=== PATIENT | male | born 1965 | race African-American/Black ===

== ENCOUNTER 2021-01-11 16:12 | Observation (INO) | payer OTHER ==
[2021-01-11] MEDS ORDERED: LORazepam 2 MG/ML INJ IV STA (16:35)
[2021-01-11] MEDS ORDERED: SODIUM CHLORIDE 0.9% 1,000 ML IV STA ×2 (16:35→18:15)
[2021-01-11 17:15] LABS: Basophils % (A) 0 %; Eosinophils # (A) 0.1 k/uL (0-0.7); Eosinophils % (A) 1 %; HCT 46.1 % (39.0-53.0); HGB 15.4 gm/dL (13.0-17.5); Lymphocytes # (A) 0.7 k/uL (1.0-4.8); Lymphocytes % (A) 8 %; MCH 31.5 pg (25.0-35.0); MCHC 33.5 g/dL (31.0-37.0); Mean Platelet Volume 7.6; Monocytes # (A) 0.3 k/uL (0-1.0); Monocytes % (A) 4 %; Neutrophils # (A) 7.4 k/uL (1.3-7.7); Neutrophils % (A) 87 %; Platelet Count 184 k/uL (150-450); WBC 8.5 k/uL (3.8-10.6)
[2021-01-11 17:25] LABS: ALT 37 U/L (4-49); AST 43 U/L (17-59); African American GFR (CKD) 74 (>60 ml/min/1.73 sqM); Albumin 4.4 g/dL (3.5-5.0); Alcohol <10 mg/dL; Alkaline Phosphatase 91 U/L (38-126); Anion Gap 10 mmol/L; Blood Urea Nitrogen 21 mg/dL (9-20); Calcium 9.5 mg/dL (8.4-10.2); Carbon Dioxide 24 mmol/L (22-30); Chloride 104 mmol/L (98-107); Glucose 105 mg/dL (74-99); Non-African American GFR(CKD) 64 (>60 ml/min/1.73 sqM); Potassium 5.2 mmol/L (3.5-5.1); Sodium 138 mmol/L (137-145); Total Bilirubin 0.4 mg/dL (0.2-1.3); Total Protein 7.5 g/dL (6.3-8.2)
[2021-01-11 17:36] LABS: INR 0.9 (<1.2); Partial Thromboplastin Time 22.1 sec (22.0-30.0)
--- NOTE | 2021-01-11 17:43 | XR ---
EXAMINATION TYPE: XR chest 2V DATE OF EXAM: 01/11/2021 COMPARISON: NONE HISTORY: Chest pain TECHNIQUE: 2 views FINDINGS: There is no heart failure nor confluent pneumonic infiltrate. Costophrenic angles are clear . Bony thorax is intact. There are chest leads. IMPRESSION: No active cardiopulmonary disease.
--- NOTE | 2021-01-11 17:44 | ED ---
General Adult HPI - General Chief complaint: Chest Pain Stated complaint: Seizure Time Seen by Provider: 01/11/21 16:17 Source: EMS Mode of arrival: EMS Limitations: no limitations - History of Present Illness Initial comments: 55-year-old male with a past medical history of atrial fibrillation presents to the emergency room for a chief complaint of chest pain. Patient had some chest pressure starting a few hours before arrival to the ER. Patient states he had been working around the house all day and afterwards he sat down and started to have chest pressure. Denies any radiating pain. Does admit to associated shortness of breath at the beginning but that has since resolved. Patient did call the ambulance. According to EMS the fire team that initially got there thought he may have had a seizure. States they went to get him up and he had a seizure and lost bladder control. No history of seizures. Patient was recently released from retirement for the past 32 years.he shouldn't did get aspirin upon transfer by EMS. Patient has no other complaints at this time including shortness of breath, chest pain, abdominal pain, nausea or vomiting, headache, or visual changes. - Related Data Home Medications Medication Instructions Recorded Confirmed Aspirin EC [Ecotrin Low Dose] 81 mg PO DAILY 01/11/21 01/11/21 Blood Pressure Med Unknown 1 tab PO DAILY 01/11/21 01/11/21 Cholesterol Unknown 1 tab PO DAILY 01/11/21 01/11/21 Naproxen [Naprosyn] 375 mg PO Q12HR 01/11/21 01/11/21 Allergies Allergy/AdvReac Type Severity Reaction Status Date / Time No Known Allergies Allergy Verified 01/11/21 17:34 Review of Systems ROS Statement: Those systems with pertinent positive or pertinent negative responses have been documented in the HPI. ROS Other: All systems not noted in ROS Statement are negative. Past Medical History Additional Past Medical History / Comment(s): AFIB HX. Pneumothroax. History of Any Multi-Drug Resistant Organisms: None Reported Past Surgical History: Orthopedic Surgery Additional Past Surgical History / Comment(s): chest tube placement Past Psychological History: No Psychological Hx Reported Smoking Status: Current every day smoker Past Alcohol Use History: Daily Past Drug Use History: None Reported General Exam Limitations: no limitations General appearance: alert, in no apparent distress Head exam: Present: atraumatic Eye exam: Present: normal appearance, PERRL, EOMI. Absent: scleral icterus ENT exam: Present: normal exam, mucous membranes moist Neck exam: Present: normal inspection, full ROM. Absent: tenderness Respiratory exam: Present: normal lung sounds bilaterally. Absent: respiratory distress, wheezes Cardiovascular Exam: Present: regular rate, normal rhythm, normal heart sounds GI/Abdominal exam: Present: soft, normal bowel sounds. Absent: distended, tenderness Course Vital Signs 01/11/21 01/11/21 17:00 17:01 Temperature 98.0 F Pulse Rate 70 Pulse Rate [ 71 Guest Room Attendant ] Respiratory 20 Rate Blood Pressure 129/84 O2 Sat by Pulse 96 Oximetry EKG Findings - EKG Comments: EKG Findings:: Normal sinus rhythm, ventricular rate 73, IL interval 166, QTC 409, T-wave inversions noted in the lateral leads. Medical Decision Making - Medical Decision Making Vitals are stable. Patient well-appearing. CBC unremarkable. CMP does reveal possible dehydration. EKG did reveal some T-wave inversions in the lateral leads. We do not have any previous EKGs to compare. Chest x-ray shows no active cardiopulmonary disease. Patient was given aspirin prior to arrival. Patient will be admitted for cardiology consultation given EKG changes and chest pressure. We will also consult neurology given fire reported seizure with loss of bladder control. - Lab Data Result diagrams: 01/11/21 17:05 01/11/21 17:05 Lab Results 01/11/21 01/11/21 01/11/21 Range/Units 17:05 17:05 17:05 WBC 8.5 (3.8-10.6) k/uL RBC 4.90 (4.30-5.90) m/uL Hgb 15.4 (13.0-17.5) gm/dL Hct 46.1 (39.0-53.0) % MCV 94.0 (80.0-100.0) fL MCH 31.5 (25.0-35.0) pg MCHC 33.5 (31.0-37.0) g/dL RDW 13.0 (11.5-15.5) % Plt Count 184 (150-450) k/uL MPV 7.6 Neutrophils % 87 % Lymphocytes % 8 % Monocytes % 4 % Eosinophils % 1 % Basophils % 0 % Neutrophils # 7.4 (1.3-7.7) k/uL Lymphocytes # 0.7 L (1.0-4.8) k/uL Monocytes # 0.3 (0-1.0) k/uL Eosinophils # 0.1 (0-0.7) k/uL Basophils # 0.0 (0-0.2) k/uL PT 10.0 (9.0-12.0) sec INR 0.9 (<1.2) APTT 22.1 (22.0-30.0) sec Sodium 138 (137-145) mmol/L Potassium 5.2 H (3.5-5.1) mmol/L Chloride 104 (98-107) mmol/L Carbon Dioxide 24 (22-30) mmol/L Anion Gap 10 mmol/L BUN 21 H (9-20) mg/dL Creatinine 1.27 H (0.66-1.25) mg/dL Est GFR (CKD-EPI)AfAm 74 (>60 ml/min/1.73 sqM) Est GFR (CKD-EPI)NonAf 64 (>60 ml/min/1.73 sqM) Glucose 105 H (74-99) mg/dL Calcium 9.5 (8.4-10.2) mg/dL Magnesium 2.0 (1.6-2.3) mg/dL Total Bilirubin 0.4 (0.2-1.3) mg/dL AST 43 (17-59) U/L ALT 37 (4-49) U/L Alkaline Phosphatase 91 (38-126) U/L Troponin I (0.000-0.034) ng/mL Total Protein 7.5 (6.3-8.2) g/dL Albumin 4.4 (3.5-5.0) g/dL Serum Alcohol <10 mg/dL 01/11/21 Range/Units 17:05 WBC (3.8-10.6) k/uL RBC (4.30-5.90) m/uL Hgb (13.0-17.5) gm/dL Hct (39.0-53.0) % MCV (80.0-100.0) fL MCH (25.0-35.0) pg MCHC (31.0-37.0) g/dL RDW (11.5-15.5) % Plt Count (150-450) k/uL MPV Neutrophils % % Lymphocytes % % Monocytes % % Eosinophils % % Basophils % % Neutrophils # (1.3-7.7) k/uL Lymphocytes # (1.0-4.8) k/uL Monocytes # (0-1.0) k/uL Eosinophils # (0-0.7) k/uL Basophils # (0-0.2) k/uL PT (9.0-12.0) sec INR (<1.2) APTT (22.0-30.0) sec Sodium (137-145) mmol/L Potassium (3.5-5.1) mmol/L Chloride (98-107) mmol/L Carbon Dioxide (22-30) mmol/L Anion Gap mmol/L BUN (9-20) mg/dL Creatinine (0.66-1.25) mg/dL Est GFR (CKD-EPI)AfAm (>60 ml/min/1.73 sqM) Est GFR (CKD-EPI)NonAf (>60 ml/min/1.73 sqM) Glucose (74-99) mg/dL Calcium (8.4-10.2) mg/dL Magnesium (1.6-2.3) mg/dL Total Bilirubin (0.2-1.3) mg/dL AST (17-59) U/L ALT (4-49) U/L Alkaline Phosphatase (38-126) U/L Troponin I <0.012 (0.000-0.034) ng/mL Total Protein (6.3-8.2) g/dL Albumin (3.5-5.0) g/dL Serum Alcohol mg/dL Disposition Clinical Impression: Chest pain, T wave inversion in EKG, Dehydration Narrative: possible seizure Disposition: ADMITTED IP TO THIS HOSP Is patient prescribed a controlled substance at d/c from ED?: No Referrals: None,Stated [Primary Care Provider] - 1-2 days Time of Disposition: 18:15
--- NOTE | 2021-01-11 18:35 | CT ---
EXAMINATION TYPE: CT brain wo con DATE OF EXAM: 01/11/2021 COMPARISON: None HISTORY: Weakness and fatigue. CT DLP: 1129.4 mGycm Automated exposure control for dose reduction was used. Ventricles have normal size. There is no mass effect nor midline shift. There is no sign of intracran ial hemorrhage. Calvarium is intact. There is normal aeration of the mastoid sinuses. IMPRESSION: Normal unenhanced head CT scan.
[2021-01-11 18:58] LABS: Amphetamine Screen,Urine Not Detected (NotDetected); Barbiturate Screen,Urine Not Detected (NotDetected); Benzodiazepines Screen,Urine Not Detected (NotDetected); Cocaine Screen,Urine Not Detected (NotDetected); Methadone Screen, Urine Not Detected (NotDetected); Opiate Screen,Urine Not Detected (NotDetected); Oxycodone Screen, Urine Not Detected (NotDetected); Phencyclidine Screen,Urine Not Detected (NotDetected); Tricyclic Antidepressant,Urine Not Detected (NotDetected); Urn Cannabinoid Scrn Detected (NotDetected)
[2021-01-12 07:52] VITALS: BP 118/85; PULSE 82; RESP 18; TEMP 98.2
[2021-01-12] MEDS ORDERED: ASPIRIN 325 MG TAB PO SCH (09:00)
[2021-01-12] MEDS ORDERED: ASPIRIN 81 MG PO SCH (09:15)
--- NOTE | 2021-01-12 10:02 | P.CRDCN ---
History of Present Illness History of present illness: HISTORY OF PRESENTING ILLNESS This is a pleasant 55-year-old male past medical history significant for coronary artery disease status post 3 stent placement in early (unknown details at this time), hypertension, dyslipidemia, "valve issues" on echo he was told before (unknown details), chronic nicotine dependence. He does not follow with a clinical nurse manager. We have been asked to see in consultation for chest pain. Patient is seen and examined in the emergency department. Patient states yesterday started to have left-sided chest pain, it was non-radiating. He states he was working around his house and after he sat down started to have left sided chest pain. He had associated shortness of breath. He denies any palpitations, lightheadedness, dizziness, syncope or presyncope. He denies any symptoms of orthopnea or PND. He denies any nausea or diaphoresis. Apparently per the emergency department the EMS noted that patient may have had a seizure and lost bladder control. [facility] from [facility]. He states in early , he was in [facility], he passed out in the yard, woke up in the emergency department and that is when his stents were placed. He does continue to smoke tobacco. DIAGNOSTICS EKG reveals sinus rhythm, heart rate 75, T wave inversions in leads III, avF, V3-V6. No prior EKG to compare. Telemetry tracings indicate sinus mechanism HR 80s Chest xray no acute cardiopulmonary process. Laboratory reviewed, troponin 3, sodium 138, potassium 5.2, BUN 21, serum creatinine 1.27, magnesium 2.0, tox screen positive for marijuana, COVID-19 PCR negative. Current home medications includeaspirin 81 mg daily, atorvastatin 20 mg nightly, metoprolol succinate 25 mg daily, PRN naproxen . REVIEW OF SYSTEMS At the time of my exam: CONSTITUTIONAL: Denies fever or chills. CARDIOVASCULAR: Denies chest pain, shortness of breath, orthopnea, PND or palp itations. RESPIRATORY: Denies cough. GASTROINTESTINAL: Denies abdominal pain, diarrhea, constipation, nausea or vomiting. MUSCULOSKELETAL: Denies myalgias. NEUROLOGIC: Denies numbness, tingling, headache or weakness. ENDOCRINE: Denies fatigue, weight change, polydipsia or polyurina. GENITOURINARY: Denies burning, hematuria or urgency with micturation. HEMATOLOGIC: Denies history of anemia or bleeding. PHYSICAL EXAMINATION Blood imexipqr277/85 HR 82, afebrile SpO2 96% on room air CONSTITUTIONAL: No apparent distress. HEENT: Head is normocephalic. Pupils are equal, round. Sclerae anicteric. Mucous membranes of the mouth are moist. No JVD. No carotid bruit. CHEST EXAMINATION: Lungs are clear to auscultation. No chest wall tenderness is noted on palpation or with deep breathing. HEART EXAMINATION: Regular rate and rhythm. S1, S2 heard. No murmurs, gallops or rub. ABDOMEN: Soft, nontender. Positive bowel sounds. EXTREMITIES: 2+ peripheral pulses, no lower extremity edema and no calf tenderness. SKIN: warm, dry NEUROLOGIC EXAMINATION: Patient is awake, alert and oriented x3. ASSESSMENT Chest pain, atypical acute coronary syndrome has ruled out History of coronary artery disease status post 3 stent placements in early 1999 unknown details Hypertension Dyslipidemia Chronic nicotine dependence PLAN An acute coronary event has been ruled out with no EKG evidence of ischemia and negative cardiac enzymes. Obtain 2D echocardiogram and doppler study to assess cardiac structure and function. Perform cardiolyte stress test to assess for stress induced cardiac ischemia. If abnormal will consider coronary angiography. Smoking cessation discussed and highly recommended. Neurology consulted If stress test is normal and no acute findings on the echocardiogram, no further cardiac workup at this time. Patient can follow up with Dr. Vázquez in the office. Thank you kindly for this consultation. Nurse Practitioner note has been reviewed, I agree with a documented findings and plan of care. Patient was seen and examined. Past Medical History Additional Past Medical History / Comment(s): AFIB HX. Pneumothroax. History of Any Multi-Drug Resistant Organisms: None Reported Past Surgical History: Orthopedic Surgery Additional Past Surgical History / Comment(s): chest tube placement Past Psychological History: No Psychological Hx Reported Smoking Status: Current every day smoker Past Alcohol Use History: Daily Past Drug Use History: None Reported Medications and Allergies Home Medications Medication Instructions Recorded Confirmed Type Aspirin EC [Ecotrin Low Dose] 81 mg PO DAILY 01/11/21 01/11/21 History Atorvastatin [Lipitor] 20 mg PO HS 01/11/21 01/11/21 History Metoprolol Succinate [Toprol XL] 25 mg PO DAILY 01/11/21 01/11/21 History Naproxen [Naprosyn] 375 mg PO Q12HR 01/11/21 01/11/21 History Allergies Allergy/AdvReac Type Severity Reaction Status Date / Time No Known Allergies Allergy Verified 01/11/21 17:34 Physical Exam Vitals: Vital Signs Temp Pulse Pulse Resp BP BP Pulse Ox 01/12/21 07:48 98.2 F 82 18 118/85 96 01/12/21 07:13 98.1 F 77 16 127/79 97 01/12/21 02:08 98.1 F 77 16 128/86 98 01/12/21 00:22 97.6 F 92 20 124/86 99 01/11/21 21:00 98.0 F 90 20 126/78 98 01/11/21 19:00 72 16 129/86 98 01/11/21 17:01 70 20 129/84 96 01/11/21 17:00 98.0 F 71 Intake and Output 01/11/21 01/12/21 01/12/21 22:59 06:59 14:59 Other: Weight 92.986 kg Results 01/11/21 17:05 01/11/21 17:05 Cardiac Enzymes 01/11/21 01/11/21 01/11/21 Range/Units 17:05 17:05 20:24 AST 43 (17-59) U/L Troponin I <0.012 <0.012 (0.000-0.034) ng/mL 01/11/21 Range/Units 23:31 AST (17-59) U/L Troponin I <0.012 (0.000-0.034) ng/mL Coagulation 01/11/21 Range/Units 17:05 PT 10.0 (9.0-12.0) sec APTT 22.1 (22.0-30.0) sec CBC 01/11/21 Range/Units 17:05 WBC 8.5 (3.8-10.6) k/uL RBC 4.90 (4.30-5.90) m/uL Hgb 15.4 (13.0-17.5) gm/dL Hct 46.1 (39.0-53.0) % Plt Count 184 (150-450) k/uL Comprehensive Metabolic Panel 01/11/21 Range/Units 17:05 Sodium 138 (137-145) mmol/L Potassium 5.2 H (3.5-5.1) mmol/L Chloride 104 (98-107) mmol/L Carbon Dioxide 24 (22-30) mmol/L BUN 21 H (9-20) mg/dL Creatinine 1.27 H (0.66-1.25) mg/dL Glucose 105 H (74-99) mg/dL Calcium 9.5 (8.4-10.2) mg/dL AST 43 (17-59) U/L ALT 37 (4-49) U/L Alkaline Phosphatase 91 (38-126) U/L Total Protein 7.5 (6.3-8.2) g/dL Albumin 4.4 (3.5-5.0) g/dL Current Medications Generic Name Dose Route Start Last Admin Trade Name Freq PRN Reason Stop Dose Admin Aspirin 81 mg 01/12/21 09:15 Aspirin 81 Mg PO DAILY GLENN Intake and Output 01/11/21 01/12/21 01/12/21 22:59 06:59 14:59 Other: Weight 92.986 kg 01/11/21 17:05 01/11/21 17:05
[2021-01-12 10:26] LABS: Chol/HDL Ratio 3.71 Ratio; HDL Cholesterol 43.4 mg/dL (40.00-60.00); LDL Cholesterol,Calculated 97.4 mg/dL (0.0-131.0); VLDL Calculation 20.2 mg/dL (5.00-40.00)
--- NOTE | 2021-01-12 12:36 | ECHOF ---
Referral Reason:LV function MEASUREMENTS -------- HEIGHT: 165.1 cm WEIGHT: 93.0 kg BP: RVIDd: 3.4 cm (< 3.3) IVSd: 1.1 cm (0.6 - 1.1) LVIDd: 4.1 cm (3.9 - 5.3) LVPWd: 1.6 cm (0.6 - 1.1) IVSs: 1.4 cm LVIDs: 3.1 cm LVPWs: 1.8 cm LA Diam: 2.8 cm (2.7 - 3.8) Ao Diam: 3.1 cm (2.0 - 3.7) AV Cusp: 2.5 cm (1.5 - 2.6) LA Diam: 3.7 cm (2.7 - 3.8) MV EXCURSION: 20.824 mm (> 18.000) MV EF SLOPE: 116 mm/s (70 - 150) EPSS: 0.5 cm MV E Constantine: 0.59 m/s MV DecT: 180 ms MV A Constantine: 0.49 m/s MV E/A Ratio: 1.20 RAP: 5.00 mmHg RVSP: 16.42 mmHg FINDINGS -------- Sinus rhythm. This was a technically adequate study. LV size, wall thickness and systolic function are normal, with an EF greater than 55%. The left bashir tricular size is normal. The right ventricle is normal in size. The left atrial size is normal. The right atrial size is normal. The aortic valve is trileaflet, and appears structurally normal. No aortic stenosis or regurgitation. The mitral valve is normal. Mild mitral regurgitation is present. The tricuspid valve appears structurally normal. Mild tricuspid regurgitation present. Right vent ricular systolic pressure is normal at < 35 mmHg. There is no pulmonic regurgitation present. The aortic root size is normal. There is no pericardial effusion. CONCLUSIONS -------- 1. LV size, wall thickness and systolic function are normal, with an EF greater than 55%. 2. The left atrial size is normal. 3. The aortic valve is trileaflet, and appears structurally normal. No aortic stenosis or regurgitati on. 4. Mild mitral regurgitation is present. 5. Mild tricuspid regurgitation present. [employer]: Madelaine Mccall RDCS
--- NOTE | 2021-01-12 16:19 | P.HPIM ---
History of Present Illness H&P Date: 01/12/21 Chief Complaint: Chest pain Mr. Rogers is a 55-year-old male with a past medical history of atrial fibrillation, pneumothorax and into the hospital with a chief complaint of chest pain. Patient states that he had chest pain that started a few hours before he came into the ED. It was mostly exertional in nature, as he was walking around the house and after he sat down he started to feel the chest pressure. He had mild difficulty in breathing. Patient states that he has chest pain 1-2/10 at baseline. He denied having any palpitations, dizziness or loss of conscious ness. Patient denied having any lower extremity swelling, orthopnea or PND. Patient states that he was recently released from group home and he takes a baby aspirin, metoprolol and atorvastatin at home. Patient's vitals at the time of admission temperature 90.8, heart rate 71, respiratory rate 20, blood pressure 1 is a 84 surgery in 96% on room air. On reviewing the labs white count of 8.5, hemoglobin 15.7, platelets 184. Sodium 138, potassium 4.2, chloride 104, bicarb 24, BUN 21, creatinine 1.27. Patient had a CAT scan of the head that was within normal limits. The patient was still in the ED, the ED nurse paged that the patient wants to leave the against edical advice. Spoke with the patient in detail regarding the workup for his chest pain. Patient mentions that he does not want to pursue any more further testing and wants to leave. So the patient left AGAINST MEDICAL ADVICE. Explained to him in detail, the implications of leaving AGAINST MEDICAL ADVICE, including . The patient signed AMA forms and left. Review of Systems Patient did not want to give any information if he wants to leave AGAINST MEDICAL ADVICE Past Medical History Additional Past Medical History / Comment(s): AFIB HX. Pneumothroax. History of Any Multi-Drug Resistant Organisms: None Reported Past Surgical History: Orthopedic Surgery Additional Past Surgical History / Comment(s): chest tube placement Past Psychological History: No Psychological Hx Reported Smoking Status: Current every day smoker Past Alcohol Use History: Daily Past Drug Use History: None Reported Medications and Allergies Home Medications Medication Instructions Recorded Confirmed Type Aspirin EC [Ecotrin Low Dose] 81 mg PO DAILY 01/11/21 01/11/21 History Atorvastatin [Lipitor] 20 mg PO HS 01/11/21 01/11/21 History Metoprolol Succinate [Toprol XL] 25 mg PO DAILY 01/11/21 01/11/21 History Naproxen [Naprosyn] 375 mg PO Q12HR 01/11/21 01/11/21 History Allergies Allergy/AdvReac Type Severity Reaction Status Date / Time No Known Allergies Allergy Verified 01/11/21 17:34 Physical Exam Vitals: Vital Signs Temp Pulse Pulse Resp BP BP Pulse Ox 01/12/21 07:48 98.2 F 82 18 118/85 96 01/12/21 07:13 98.1 F 77 16 127/79 97 01/12/21 02:08 98.1 F 77 16 128/86 98 01/12/21 00:22 97.6 F 92 20 124/86 99 01/11/21 21:00 98.0 F 90 20 126/78 98 01/11/21 19:00 72 16 129/86 98 01/11/21 17:01 70 20 129/84 96 01/11/21 17:00 98.0 F 71 Intake and Output 01/11/21 01/12/21 01/12/21 22:59 06:59 14:59 Other: Voiding Method Toilet Urinal Weight 92.986 kg Patient did not allow me to complete a physical exam as he wants to leave AGAINST MEDICAL ADVICE Results CBC & Chem 7: 01/11/21 17:05 01/11/21 17:05 Labs: Abnormal Lab Results - Last 24 Hours (Table) 01/11/21 01/11/21 01/11/21 Range/Units 17:05 17:05 17:05 Lymphocytes # 0.7 L (1.0-4.8) k/uL Potassium 5.2 H (3.5-5.1) mmol/L BUN 21 H (9-20) mg/dL Creatinine 1.27 H (0.66-1.25) mg/dL Glucose 105 H (74-99) mg/dL U Marijuana (THC) Screen Detected H (NotDetected) Assessment and Plan Assessment: ASSESSMENT Chest pain Coronary artery disease status post 3 stents placed in early 1999 Hypertension Hyperlipidemia Chronic nicotine dependence PLAN - patient left AGAINST MEDICAL ADVICE.
--- NOTE | 2021-01-12 16:22 | P.DS ---
Providers Date of admission: 01/11/21 18:01 Expected date of discharge: 01/12/21 Attending physician: La Cooper Consults: 01/11/21 18:16 Consult Physician Routine Consulting Provider: [facility] Consult Reason/Comments: chest pain, t wave inversions Do you want consulting provider notified?: Yes Consult Physician Routine Consulting Provider: Jacki Lofton Consult Reason/Comments: possible seizure Do you want consulting provider notified?: Yes Primary care physician: Stated None Hospital Course: Mr. Rogers is a 55-year-old male with a past medical history of atrial fibrillation, pneumothorax and into the hospital with a chief complaint of chest pain. Patient states that he had chest pain that started a few hours before he came into the ED. It was mostly exertional in nature, as he was walking around the house and after he sat down he started to feel the chest pressure. He had mild difficulty in breathing. Patient states that he has chest pain 1-2/10 at baseline. He denied having any palpitations, dizziness or loss of consciousness. Patient denied having any lower extremity swelling, orthopnea or PND. Patient states that he was recently released from [facility] and he takes a baby aspirin, metoprolol and atorvastatin at home. Patient's vitals at the time of admission temperature 90.8, heart rate 71, respiratory rate 20, blood pressure 1 is a 84 surgery in 96% on room air. On reviewing the labs white count of 8.5, hemoglobin 15.7, platelets 184. Sodium 138, potassium 4.2, chloride 104, bicarb 24, BUN 21, creatinine 1.27. Patient h ad a CAT scan of the head that was within normal limits. The patient was still in the ED, the ED nurse paged that the patient wants to leave the against edical advice. Spoke with the patient in detail regarding the workup for his chest pain. Patient mentions that he does not want to pursue any more further testing and wants to leave. So the patient left AGAINST MEDICAL ADVICE. Explained to him in detail, the implications of leaving AGAINST MEDICAL ADVICE, including . The patient signed AMA forms and left. DISCHARGE DIAGNOSIS Chest pain Coronary artery disease status post 3 stents placed in early 1999 Hypertension Hyperlipidemia Chronic nicotine dependence Patient left AGAINST MEDICAL ADVICE. Plan - Discharge Summary New Discharge Prescriptions: No Action Naproxen [Naprosyn] 375 mg PO Q12HR Aspirin EC [Ecotrin Low Dose] 81 mg PO DAILY Metoprolol Succinate [Toprol XL] 25 mg PO DAILY Atorvastatin [Lipitor] 20 mg PO HS Discharge Medication List Aspirin EC [Ecotrin Low Dose] 81 mg PO DAILY 01/11/21 [History] Atorvastatin [Lipitor] 20 mg PO HS 01/11/21 [History] Metoprolol Succinate [Toprol XL] 25 mg PO DAILY 01/11/21 [History] Naproxen [Naprosyn] 375 mg PO Q12HR 01/11/21 [History] Follow up Appointment(s)/Referral(s): Alberta Vázquez MD [STAFF PHYSICIAN] - 2 Weeks None,Stated [Primary Care Provider] - 1-2 days Discharge Disposition: Left Against Medical Advice
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
[2021-01-12] MEDS ORDERED: ATORVASTATIN 20 MG TAB PO SCH (21:00)
== END 2021-01-12 14:06 | disposition left against medical advice (07) ==
LOC: EC 16:12 → 6NMEDSUR 18:01
PROVIDERS: ADMIT Hospitalist; ATTEND Hospitalist
DX: R07.89 Other chest pain (principal); R56.9 Unspecified convulsions; R32 Unspecified urinary incontinence; R20.2 Paresthesia of skin; Z20.822 Contact with and (suspected) exposure to COVID-19; I25.10 Atherosclerotic heart disease of native coronary artery without angina pectoris; N17.9 Acute kidney failure, unspecified; Z53.29 Procedure and treatment not carried out because of patient's decision for other reasons; I10 Essential (primary) hypertension; E78.5 Hyperlipidemia, unspecified; F17.200 Nicotine dependence, unspecified, uncomplicated; F12.90 Cannabis use, unspecified, uncomplicated; I48.91 Unspecified atrial fibrillation; Z71.6 Tobacco abuse counseling; Z79.82 Long term (current) use of aspirin; Z79.899 Other long term (current) drug therapy; Z95.5 Presence of coronary angioplasty implant and graft; Z87.09 Personal history of other diseases of the respiratory system
CPT/HCPCS: 99285; 96361; 96374; 36415; 93005; 93306; 80061; 80053; 83735; 84484; 85025; 85610; 85730; 80306; 87635; 71046; 70450; G0378 ×2; G0480; J2060; 80320

== ENCOUNTER → 2021-03-10 | Outpatient (CLI) | payer OTHER ==
--- NOTE | 2021-03-10 18:04 | US ---
EXAMINATION TYPE: US scrotum with doppler. Grayscale and color Doppler Duplex imaging performed of rosalee mott scrotum. DATE OF EXAM: 03/10/2021 COMPARISON: NONE CLINICAL HISTORY: N45.2 Orchitis, S73.101A. Right testicular pain. EXAM MEASUREMENTS: TESTICLES: Right Testicle: 3.3 x 2.4 x 2.0 cm Left Testicle: 3.1 x 2.3 x 1.6 cm *Hyperechoic area seen within right testicle: 0.1 x 0.1 x 0.1 cm. *Three hyperechoic areas seen within left testicle, largest measures: 0.2 x 0.2 x 0.1 cm. EPIDIDYMIS HEAD: Right Epididymis: 0.9 x 1.3 x 1.0 cm Left Epididymis: 1.2 x 1.1 x 1.3 cm Left epididymis appears large compared to right side. Doppler performed to assess for testicular vascularity; bilateral color flow and waveforms are seen. Presence of hydroceles: Yes, right: 2.2 x 0.6 x 0.7 cm. Left: 4.8 x 0.9 x 0.8 cm. Presence of varicoceles: Vessels seen on right measure 1.7 mm. Left sided vessels appear more promin ent measuring 2.4 mm. IMPRESSION: No evidence of testicular torsion. No testicular mass. There is right side very mild hyperemia that c ould relate to orchitis of the right testicle. No evidence of epididymal mass. There are small bilate ral hydroceles.
== END | disposition home or self-care (01) ==
LOC: RADUSWWP 17:05
PROVIDERS: ATTEND Emergency Medicine
DX: N43.3 Hydrocele, unspecified (principal); N45.2 Orchitis
CPT/HCPCS: 76870; 93975

== ENCOUNTER → 2021-03-11 | Outpatient (CLI) | payer OTHER ==
--- NOTE | 2021-03-11 09:38 | XR ---
Right hip HISTORY: Trauma and pain 2 views of the right hip, no comparisons There is osteoarthritic change, marginal spurring, concentric joint space loss is noted. Alignment an d bone mineralization are maintained. IMPRESSION: No fracture or dislocation. Osteoarthritis.
== END | disposition home or self-care (01) ==
LOC: RADXRMAIN 09:03
PROVIDERS: ATTEND Emergency Medicine
DX: M16.11 Unilateral primary osteoarthritis, right hip (principal)
CPT/HCPCS: 73502

== ENCOUNTER → 2021-05-06 | Outpatient (CLI) | payer OTHER ==
--- NOTE | 2021-05-06 14:44 | MR ---
MRI right hip HISTORY: Right hip and groin pain, N45.2 orchitis, S73.101D Multiplanar multisequence imaging obtained through the pelvis with small [id number] images through the right hip Correlation to right hip plain film 03/11/2021 Marginal spurring is present with concentric joint space loss, grade 2 to grade III chondromalacia is present. There is subchondral signal change present, likely geode formation within the femoral head and acetabulum, serpiginous low signal is also present at the medial aspect of the femoral head on T1 and T2-weighted sequences, degree of osteonecrosis is not excluded although the signal changes appea rs somewhat medial rather than at the weightbearing surface which is atypical. Bone marrow edema is p resent within the medial femoral head. There is no sizable joint effusion however. There is no fractu re or dislocation. No evident femoral head collapse. Prostate is enlarged. Left hip also shows some osteoarthritic change to lesser degree. No pelvic juancarlos opathy or free fluid. Facet arthropathy is noted at the lower lumbar spine. No evident tear of the gl uteus tendons, normal signal at the origin of the hamstring musculature. IMPRESSION: Osteoarthritis. There may be a component of osteonecrosis as described, there is atypical appearance for this however. There is bone marrow edema.
== END | disposition home or self-care (01) ==
LOC: RADMRIMAIN 09:31
PROVIDERS: ATTEND Emergency Medicine
DX: M16.12 Unilateral primary osteoarthritis, left hip (principal); N45.2 Orchitis

== ENCOUNTER 2021-12-30 14:09 | Observation (INO) | payer OTHER ==
[2021-12-30] MEDS ORDERED: HYDROcodone/APAP 5-325MG 1 EACH TAB PO STA (15:40)
--- NOTE | 2021-12-30 15:57 | CT ---
EXAMINATION TYPE: CT pelvis wo con DATE OF EXAM: 12/30/2021 COMPARISON: MR right hip 05/06/2021, plain film 03/11/2021 HISTORY: worsening right hip/groin pain. injury months ago. CT DLP: 354.8 mGycm Automated exposure control for dose reduction was used. FINDINGS: Osteoarthritic changes again noted within the right hip with marginal spurring and concentric joint s pace loss. Probable subchondral geode formation or evident osteonecrosis present medially within the right femoral head as noted on prior MRI. Probable subchondral geode formation also present along the acetabulum medially. Osteoarthritic changes also present within the left hip. Degenerative disc chris ges are noted incidentally in the lumbar spine. No evident fracture or dislocation. Prostate shows some associated calcification. The appendix is normal. There is an umbilical hernia co ntaining fat. IMPRESSION: FINDINGS SUGGEST OSTEONECROSIS RIGHT HIP, OSTEOARTHRITIS PRESENT IN THE BILATERAL HIPS
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
[2021-12-30 16:48] LABS: Basophils % (A) 1 %; Eosinophils # (A) 0.3 k/uL (0-0.7); Eosinophils % (A) 5 %; HCT 45.7 % (39.0-53.0); HGB 15.4 gm/dL (13.0-17.5); Lymphocytes # (A) 2.3 k/uL (1.0-4.8); Lymphocytes % (A) 36 %; MCH 32.2 pg (25.0-35.0); MCHC 33.6 g/dL (31.0-37.0); MCV 95.8 fL (80.0-100.0); Mean Platelet Volume 7.7; Monocytes # (A) 0.4 k/uL (0-1.0); Monocytes % (A) 6 %; Neutrophils # (A) 3.2 k/uL (1.3-7.7); Neutrophils % (A) 51 %; Platelet Count 178 k/uL (150-450); RBC 4.77 m/uL (4.30-5.90); RDW 12.3 % (11.5-15.5); WBC 6.4 k/uL (3.8-10.6)
[2021-12-30 16:58] LABS: ALT 19 U/L (4-49); AST 24 U/L (17-59); African American GFR (CKD) >90 (>60 ml/min/1.73 sqM); Albumin 4.2 g/dL (3.5-5.0); Alkaline Phosphatase 83 U/L (38-126); Anion Gap 9 mmol/L; Blood Urea Nitrogen 15 mg/dL (9-20); Calcium 9.5 mg/dL (8.4-10.2); Carbon Dioxide 26 mmol/L (22-30); Chloride 104 mmol/L (98-107); Glucose 85 mg/dL (74-99); Non-African American GFR(CKD) >90 (>60 ml/min/1.73 sqM); Potassium 4.4 mmol/L (3.5-5.1); Sodium 139 mmol/L (137-145); Total Bilirubin 0.5 mg/dL (0.2-1.3); Total Protein 6.7 g/dL (6.3-8.2)
[2021-12-30 17:12] LABS: C Reactive Protein <0.5 mg/dL (<1.0)
[2021-12-30] MEDS ORDERED: IBUPROFEN 400 MG TAB PO PRN (17:36)
[2021-12-30] MEDS ORDERED: ONDANSETRON 4 MG/2 ML VIAL IVP PRN (17:36)
[2021-12-30] MEDS ORDERED: ACETAMINOPHEN TAB 325 MG TAB PO PRN (17:36)
[2021-12-30] MEDS ORDERED: oxyCODONE-APAP 5-325MG 1 EACH TAB PO PRN (17:36)
[2021-12-30] MEDS ORDERED: NALOXONE 0.4 MG/ML 1 ML VIAL IV PRN (17:36)
[2021-12-30 17:38] LABS: Erythrocyte Sedimentation Rate 2 mm/hr (0-15)
[2021-12-30] MEDS: HYDROcodone/APAP 5-325MG 1 EACH TAB PO PRN (21:19)
[2021-12-31] MEDS ORDERED: NON FORMULARY DRUG (Tadalafil [Cialis] 5 MG Tablet) PO PRN (06:49)
[2021-12-31 07:28] VITALS: BP 117/80; PULSE 59; RESP 18; TEMP 98
[2021-12-31] MEDS ORDERED: ASPIRIN 81 MG PO SCH (09:00)
[2021-12-31] MEDS ORDERED: FAMOTIDINE 20 MG TAB PO SCH (09:00)
[2021-12-31] MEDS ORDERED: NAPROXEN 250 MG TAB PO SCH (09:00)
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
[2021-12-31] MEDS: HYDROcodone/APAP 5-325MG 1 EACH TAB PO PRN (12:08)
--- NOTE | 2021-12-31 12:54 | P.CNOR ---
History of Present Illness - [facility] Consult date: 12/31/21 Consult reason: joint pain (Right hip pain.) History of present illness: Joseph is a 56-year-old male who is known to our practice with history of right hip pain.He was first evaluated in May of 2021 after a work injury in March. He states that he did the splits when he slid at work. His hip pain began at that time. X-rays in the office revealed mild arthritic changes. He eventually had an MRI which revealed mild osteonecrosis and degenerative changes to the right hip with no bony collapse. We have been treating conservatively with anti-inflammatories and physical therapy. The patient has continued to work with restrictions. He states that he had sudden increase in his right hip pain yesterday when he stood up and felt immediate pain in his right hip. He states that he felt the leg was going to give out on him. He was brought to the emergency department and he is admitted to internal medicine for his right hip pain. We are consulted for further evaluation. Past Medical History Additional Past Medical History / Comment(s): AFIB HX. Pneumothroax. History of Any Multi-Drug Resistant Organisms: None Reported Past Surgical History: Orthopedic Surgery Additional Past Surgical History / Comment(s): chest tube placement Past Psychological History: No Psychological Hx Reported Smoking Status: Current every day smoker Past Alcohol Use History: Daily Past Drug Use History: None Reported Medications and Allergies Home Medications Medication Instructions Recorded Confirmed Type Aspirin EC [Ecotrin Low Dose] 81 mg PO DAILY 01/11/21 12/30/21 History Naproxen [Naprosyn] 375 mg PO Q12HR 01/11/21 12/30/21 History Atorvastatin [Lipitor] 40 mg PO HS 12/30/21 12/30/21 History tadalafiL [Cialis] 5 mg PO DAILY PRN 12/30/21 12/30/21 History Allergies Allergy/AdvReac Type Severity Reaction Status Date / Time No Known Allergies Allergy Verified 12/30/21 15:41 Physical Examination This is a pleasant 56-year-old male in no acute distress. He is alert and oriented 3. Exam of the right hip and lower extremity reveals no obvious deformity. There is no shortening or rotational deformity. He has full flexion of the hip and knee without difficulty. There is some pain with internal and external rotation of the right hip. Exam of the left hip is unremarkable. There is no soft tissue swelling about the hip. No knee effusion or swelling to the lower extremity. He has full foot and ankle motion bilaterally. Neurovascular status to the lower extremities is intact. Results CT scan of the pelvis reveals mild degenerative changes to both hips. There is no collapse of the bone or cartilage surface in the right hip. There are small cysts noted. No obvious fracture noted. - Labs Labs: H & H 12/30/21 Range/Units 16:28 Hgb 15.4 (13.0-17.5) gm/dL Hct 45.7 (39.0-53.0) % Result Diagrams: 12/30/21 16:28 12/30/21 16:28 Assessment and Plan (1) Primary osteoarthritis of right hip Current Visit: Yes Status: Acute Code(s): M16.11 - UNILATERAL PRIMARY OSTEOARTHRITIS, RIGHT HIP SNOMED Code(s): 413764926675292 (2) Osteonecrosis of right hip Current Visit: Yes Status: Acute Code(s): M87.9 - OSTEONECROSIS, UNSPECIFIED SNOMED Code(s): 769055996 Plan: The clinical and radiographic findings are discussed with the patient. CT scan shows no interval change from prior images taken in our office. It is recommended he have an MRI for further evaluation.It is discussed with the patient that there is no urgent need for surgical intervention. The MRI will give us a better idea as to any further progression of the necrosis. He is assured that the femoral head has maintained its dome appearance in the acetabulum. There is no obvious collapse at this time. I will consult pain management for possible injections or nerve block for his pain.
[2021-12-31] MEDS ORDERED: HEPARIN SODIUM,PORCINE/PF 5,000 UNIT/0.5 ML SYRINGE SQ SCH (16:00)
[2021-12-31] MEDS ORDERED: ATORVASTATIN 40 MG TAB PO SCH (21:00)
== END 2021-12-31 14:45 | disposition home or self-care (01) ==
LOC: EC 14:09 → 4SSUR 17:36
PROVIDERS: ADMIT Internal Medicine; ATTEND Internal Medicine
DX: M87.851 Other osteonecrosis, right femur (principal); M16.11 Unilateral primary osteoarthritis, right hip; E78.5 Hyperlipidemia, unspecified; I34.0 Nonrheumatic mitral (valve) insufficiency; I48.91 Unspecified atrial fibrillation; F17.200 Nicotine dependence, unspecified, uncomplicated; Z79.82 Long term (current) use of aspirin; Z79.899 Other long term (current) drug therapy
CPT/HCPCS: 99284; 36415; 80053; 85652; 83605; 85025; 86140; 72192; G0378 ×2

== ENCOUNTER → 2022-01-19 | Outpatient (CLI) | payer OTHER ==
--- NOTE | 2022-01-19 11:50 | MR ---
EXAMINATION TYPE: MR hip RT wo con DATE OF EXAM: 01/19/2022 COMPARISON: Prior MRI right hip May 06, 2021. CT pelvis December 30, 2021. Right hip x-ray March 11, 2021 HISTORY: Right hip pain swelling and limited movement S/P fall 2021. Standard multiplanar, multisequence MRI departmental protocol Multiplanar, multisequence images of the pelvis were acquired without contrast. Exam focuses on right hip. FINDINGS: Moderate axial joint space loss in both hips is redemonstrated with moderate acetabular spu rring. There are small physiologic symmetric joint effusions bilaterally redemonstrated. Area of prio r abnormal diminished T1 and increased use to signal involving the superior medial humeral head now s hows minimal abnormal signal on the Current study at this level. There is new mild increased T2 signa l involving the proximal anterior superior right femoral neck coronal image 8 and axial image 23. Fem oral head shape is maintained. Mild increased signal level of the greater trochanters bilaterally is now present, more prominent on the right on current study versus prior. There are persistent moderate size fat-containing bilateral inguinal hernias. Stable prominent but subcentimeter bilateral groin l ymph nodes. Muscle bulk is preserved bilaterally. Subtle increased T2 signal involving the superior o sseous glenoid sagittal image 10 on current study is new from prior exam. Labrum appears grossly inta ct given limitation of nonarthrogram study. Prostate gland measures upper limits of normal to mildly enlarged in size. No suspicious bowel dilata tion. No concerning pelvic fluid collection. IMPRESSION: Improved focal osseous contusion injury superior medial humeral head. Moderate degenerati ve changes in the right hip are redemonstrated as detailed above. New small focus of abnormal bone ma rrow edema involving the anterior superior proximal femoral neck. There is new tendinitis involving t he gluteus tendon insertion on the right at greater trochanter level.
== END | disposition home or self-care (01) ==
LOC: RADMRIMAIN 10:29
PROVIDERS: ATTEND Orthopaedic Surgery
DX: S70.01XD Contusion of right hip, subsequent encounter (principal); M16.11 Unilateral primary osteoarthritis, right hip; M25.551 Pain in right hip; M79.651 Pain in right thigh

== ENCOUNTER 2022-09-13 00:49 | Observation (INO) | payer OTHER ==
[2022-09-13 00:53] VITALS: RESP 16
[2022-09-13] MEDS ORDERED: NITROGLYCERIN SL TABS 0.4 MG TAB SUBLINGUAL STA (00:59)
[2022-09-13] MEDS ORDERED: SODIUM CHLORIDE 0.9% 1,000 ML IV STA (00:59)
[2022-09-13 01:13] LABS: Basophils % (A) 0 %; Eosinophils # (A) 0.2 k/uL (0-0.7); Eosinophils % (A) 4 %; HGB 13.2 gm/dL (13.0-17.5); Lymphocytes # (A) 1.8 k/uL (1.0-4.8); Lymphocytes % (A) 33 %; MCH 30.6 pg (25.0-35.0); MCHC 32.2 g/dL (31.0-37.0); MCV 95.1 fL (80.0-100.0); Mean Platelet Volume 7.9; Monocytes # (A) 0.3 k/uL (0-1.0); Monocytes % (A) 6 %; Neutrophils % (A) 54 %; Platelet Count 165 k/uL (150-450); RBC 4.31 m/uL (4.30-5.90); RDW 13.3 % (11.5-15.5); WBC 5.5 k/uL (3.8-10.6)
[2022-09-13 01:21] LABS: INR 0.9 (<1.2); Partial Thromboplastin Time 25.4 sec (22.0-30.0)
[2022-09-13 01:28] LABS: ALT 16 U/L (4-49); AST 20 U/L (17-59); African American GFR (CKD) >90 (>60 ml/min/1.73 sqM); Albumin 3.5 g/dL (3.5-5.0); Alkaline Phosphatase 107 U/L (38-126); Anion Gap 7 mmol/L; Blood Urea Nitrogen 23 mg/dL (9-20); Calcium 8.7 mg/dL (8.4-10.2); Carbon Dioxide 21 mmol/L (22-30); Chloride 110 mmol/L (98-107); Glucose 87 mg/dL (74-99); Lipase 187 U/L (23-300); Magnesium 1.9 mg/dL (1.6-2.3); Non-African American GFR(CKD) >90 (>60 ml/min/1.73 sqM); Sodium 138 mmol/L (137-145); Total Bilirubin 0.3 mg/dL (0.2-1.3)
[2022-09-13] MEDS ORDERED: HEPARIN SODIUM 1,000 UN/ML (10ML VL) IV ONE (02:13)
[2022-09-13] MEDS ORDERED: HEPARIN SODIUM 1,000 UN/ML (10ML VL) IV PRN (02:13)
[2022-09-13] MEDS ORDERED: HEPARIN SOD,PORK IN 0.45% NACL 25,000 UNIT in 0.45% NACL 1 250ML.BAG IV SCH (02:15)
[2022-09-13] MEDS ORDERED: MORPHINE SULFATE 2 MG/ML SYRINGE IVP STA (02:16)
--- NOTE | 2022-09-13 02:26 | ED ---
General Adult HPI - General Chief complaint: Chest Pain Stated complaint: Chest Pain Time Seen by Provider: 09/13/22 00:54 Source: patient, EMS, RN notes reviewed, old records reviewed Mode of arrival: EMS Limitations: no limitations - History of Present Illness Initial comments: Patient is a 56-year-old male presents with his Department of chest pain. States it occurred 1 hour ago while watching TV. Mom nausea when it started. He states it radiated from also distress at the left side of his neck. Does have a history of significant cardiac disease including 5 previous stents in the early . Patient received nitro, aspirin from EMS with no improvement of his symptoms. States it is improved from earlier but is still present. Describes it as a pressure sensation. Presents for further evaluation at this time. Denies shortness of breath. Denies fever or cough. Denies any other acute complaints. - Related Data Home Medications Medication Instructions Recorded Confirmed Aspirin EC [Ecotrin Low Dose] 81 mg PO DAILY 01/11/21 12/30/21 Naproxen [Naprosyn] 375 mg PO Q12HR 01/11/21 12/30/21 Atorvastatin [Lipitor] 40 mg PO HS 12/30/21 12/30/21 tadalafiL [Cialis] 5 mg PO DAILY PRN 12/30/21 12/30/21 Allergies Allergy/AdvReac Type Severity Reaction Status Date / Time No Known Allergies Allergy Verified 05/11/22 01:13 Review of Systems ROS Statement: Those systems with pertinent positive or pertinent negative responses have been documented in the HPI. Review of Systems: CONST: Denies fever EYES: Denies blurry vision ENT: Denies nasal congestion C/V: Endorses chest pain RESP: Denies shortness of breath GI: Denies abdominal pain : Denies dysuria SKIN: Denies rash. MSK: Denies joint pain. NEURO: Denies headache ROS Other: All systems not noted in ROS Statement are negative. Past Medical History Past Medical History: Hypertension Additional Past Medical History / Comment(s): AFIB HX. Pneumothroax. History of Any Multi-Drug Resistant Organisms: None Reported Past Surgical History: Orthopedic Surgery Additional Past Surgical History / Comment(s): chest tube placement Past Psychological History: No Psychological Hx Reported Smoking Status: Current every day smoker Past Alcohol Use History: Daily Past Drug Use History: None Reported General Exam - General Exam Comments Initial Comments: General: Appears in no acute distress. HEAD: Normal with no signs of head trauma. EYES: PERRLA, EOMI, conjunctiva normal, no discharge. ENT: Hearing grossly intact, normal oropharynx. RESPIRATORY: Clear breath sounds bilaterally. No wheezes, rales, or rhonchi. C/V: Regular rate and rhythm. S1 and S2 auscultated, no edema, peripheral pul ses 2+ and intact throughout. Chest pain nonreproducible on palpation. ABD: Abd is soft, nontender, nondistended EXT: Normal range of motion, no obvious deformity SKIN: No rashes or lesions observed on exposed skin. NEURO: Alert and oriented 4. Limitations: no limitations Course Vital Signs 09/13/22 09/13/22 00:50 04:00 Temperature 98.2 F Pulse Rate 57 L 57 L Respiratory 16 16 Rate Blood Pressure 115/86 108/57 O2 Sat by Pulse 100 98 Oximetry Medical Decision Making - Medical Decision Making Was pt. sent in by a medical professional or institution (, PA, STRAIGHT LINE EDGER, urgent care, hospital, or fpc...) When possible be specific @ -No Did you speak to anyone other than the patient for history (EMS, parent, family, police, friend...)? What history was obtained from this source @ -No Did you review nursing and triage notes (agree or disagree)? Why? @ -I reviewed and agree with nursing and triage notes Were old charts reviewed (outside hosp., previous admission, EMS record, old EKG, old radiological studies, urgent care reports/EKG's, fpc records)? Report findings @ -Old charts reviewed from January 2021. Differential Diagnosis (chest pain, altered mental status, abdominal pain women, abdominal pain men, vaginal bleeding, weakness, fever, dyspnea, syncope, headache, dizziness, GI bleed, back pain, seizure, CVA, palpatations, mental health, musculoskeletal)? @ -Differential Chest Pain: Stable Angina, Unstable Angina, STEMI, NSTEMI Aortic Dissection, Pneumothorax, Musculoskeletal, Esophageal Spasm GERD, Cholecystitis, Pancreatitis, Zoster, this is not meant to be an all-inclusive list. EKG interpreted by me (3pts min.). @ -As above X-rays interpreted by me (1pt min.). @ -Chest x-ray reveals no obvious acute cardio pulmonary process. CT interpreted by me (1pt min.). @ -None done U/S interpreted by me (1pt. min.). @ -None done What testing was considered but not performed or refused? (CT, X-rays, U/S, labs)? Why? @ -None What meds were considered but not given or refused? Why? @ -Considered aspirin, however this was already given by EMS. Did you discuss the management of the patient with other professionals (professionals i.e. DrGeoffrey, PA, STRAIGHT LINE EDGER, lab, RT, psych nurse, child welfare social worker, accessioner, teacher, administrative services officer, registered nurse hh case manager)? Give summary @ -Discussed with patient's admitting physician Dr. Dr. Lao who accepted the patient. Was smoking cessation discussed for >3mins.? @ -No Was critical care preformed (if so, how long)? @ -No Were there social determinants of health that impacted care today? How? (Homelessness, low income, unemployed, alcoholism, drug addiction, transportation, low edu. Level, literacy, decrease access to med. care, assisted, rehab)? @ -No Was there de-escalation of care discussed even if they declined (Discuss DNR or withdrawal of care, Hospice)? DNR status @ -No What co-morbidities impacted this encounter? (DM, HTN, Smoking, COPD, CAD, Cancer, CVA, ARF, Chemo, Hep., AIDS, mental health diagnosis, sleep apnea, morbid obesity)? @ -CAD with 5 cardiac stents Was patient admitted / discharged? Hospital course, mention meds given and route, prescriptions, significant lab abnormalities, going to OR and other pertinent info. @ -Based on the patient's presentation and physical exam, I'm concerned for cardiopulmonary etiology for his current symptoms. We will obtain a cardiac workup. He is already received aspirin. We will provide him with multiple sublingual nitroglycerin tablets. He was in agreement this plan. Vital signs within acceptable limits. EKGs showing no evidence of acute ischemia. Chest x-ray unremarkable. Labs remarkable for an undetectable troponin. Remainder of the labs are within acceptable limits. Following nitro glycerin tablets, patient is no improvement of his symptoms. We'll provide him with morphine which did improve his symptoms. I did discuss with him his results and due to his history we will empirically start the patient on a heparin drip. We will trend his troponin and admit him for cardiology evaluation. He was in agreement this plan. I spoke with the admitting physician, Dr. Lao was in agreement with this plan. Undiagnosed new problem with uncertain prognosis? @ -No Drug Therapy requiring intensive monitoring for toxicity (Heparin, Nitro, Insulin, Cardizem)? @ -Heparin Were any procedures done? @ -No Diagnosis/symptom? @ -Chest pain Acute, or Chronic, or Acute on Chronic? @ -Acute Uncomplicated (without systemic symptoms) or Complicated (systemic symptoms)? @ -Complicated Side effects of treatment? @ -No Exacerbation, Progression, or Severe Exacerbation? @ -No Poses a threat to life or bodily function? How? (Chest pain, [place], PR, pneumonia, PE, COPD, DKA, ARF, appy, cholecystitis, CVA, Diverticulitis, Homicidal, Suicidal, threat to staff... and all critical care pts) @ -yes - Lab Data Result diagrams: 09/13/22 00:55 09/13/22 00:55 Lab Results 09/13/22 09/13/22 09/13/22 Range/Units 00:55 00:55 00:55 WBC 5.5 (3.8-10.6) k/uL RBC 4.31 (4.30-5.90) m/uL Hgb 13.2 (13.0-17.5) gm/dL Hct 41.0 (39.0-53.0) % MCV 95.1 (80.0-100.0) fL MCH 30.6 (25.0-35.0) pg MCHC 32.2 (31.0-37.0) g/dL RDW 13.3 (11.5-15.5) % Plt Count 165 (150-450) k/uL MPV 7.9 Neutrophils % 54 % Lymphocytes % 33 % Monocytes % 6 % Eosinophils % 4 % Basophils % 0 % Neutrophils # 3.0 (1.3-7.7) k/uL Lymphocytes # 1.8 (1.0-4.8) k/uL Monocytes # 0.3 (0-1.0) k/uL Eosinophils # 0.2 (0-0.7) k/uL Basophils # 0.0 (0-0.2) k/uL PT 10.0 (9.0-12.0) sec INR 0.9 (<1.2) APTT 25.4 (22.0-30.0) sec Sodium 138 (137-145) mmol/L Potassium 4.0 (3.5-5.1) mmol/L Chloride 110 H (98-107) mmol/L Carbon Dioxide 21 L (22-30) mmol/L Anion Gap 7 mmol/L BUN 23 H (9-20) mg/dL Creatinine 0.95 (0.66-1.25) mg/dL Est GFR (CKD-EPI)AfAm >90 (>60 ml/min/1.73 sqM) Est GFR (CKD-EPI)NonAf >90 (>60 ml/min/1.73 sqM) Glucose 87 (74-99) mg/dL Calcium 8.7 (8.4-10.2) mg/dL Magnesium 1.9 (1.6-2.3) mg/dL Total Bilirubin 0.3 (0.2-1.3) mg/dL AST 20 (17-59) U/L ALT 16 (4-49) U/L Alkaline Phosphatase 107 (38-126) U/L Troponin I (0.000-0.034) ng/mL Total Protein 6.0 L (6.3-8.2) g/dL Albumin 3.5 (3.5-5.0) g/dL Lipase 187 (23-300) U/L 09/13/22 Range/Units 00:55 WBC (3.8-10.6) k/uL RBC (4.30-5.90) m/uL Hgb (13.0-17.5) gm/dL Hct (39.0-53.0) % MCV (80.0-100.0) fL MCH (25.0-35.0) pg MCHC (31.0-37.0) g/dL RDW (11.5-15.5) % Plt Count (150-450) k/uL MPV Neutrophils % % Lymphocytes % % Monocytes % % Eosinophils % % Basophils % % Neutrophils # (1.3-7.7) k/uL Lymphocytes # (1.0-4.8) k/uL Monocytes # (0-1.0) k/uL Eosinophils # (0-0.7) k/uL Basophils # (0-0.2) k/uL PT (9.0-12.0) sec INR (<1.2) APTT (22.0-30.0) sec Sodium (137-145) mmol/L Potassium (3.5-5.1) mmol/L Chloride (98-107) mmol/L Carbon Dioxide (22-30) mmol/L Anion Gap mmol/L BUN (9-20) mg/dL Creatinine (0.66-1.25) mg/dL Est GFR (CKD-EPI)AfAm (>60 ml/min/1.73 sqM) Est GFR (CKD-EPI)NonAf (>60 ml/min/1.73 sqM) Glucose (74-99) mg/dL Calcium (8.4-10.2) mg/dL Magnesium (1.6-2.3) mg/dL Total Bilirubin (0.2-1.3) mg/dL AST (17-59) U/L ALT (4-49) U/L Alkaline Phosphatase (38-126) U/L Troponin I <0.012 (0.000-0.034) ng/mL Total Protein (6.3-8.2) g/dL Albumin (3.5-5.0) g/dL Lipase (23-300) U/L - EKG Data -: EKG Interpreted by Me EKG Comments: 12-lead Electrocardiogram Interpretation Note EKG was reviewed and interpreted by myself. 12-lead ECG performed at 0053 is interpreted by me as revealing sinus bradycardia at a rate of 57 beats per minute. [place] is normal. MN interval is 152 ms, QRS duration 78 ms, QTc is 412 ms.. There were no ST or T wave abnormalities to suggest myocardial ischemia or injury. R wave progression across the precordium was satisfactory. By my interpretation this EKG is non-diagnostic for acute ischemia. 12-lead Electrocardiogram Interpretation Note EKG was reviewed and interpreted by myself. 12-lead ECG performed at 0140 is interpreted by me as revealing sinus bradycardia at a rate of at 57 beats per minute. [place] is normal. MN interval is 155 ms, QRS duration 79 ms, QTc is 420 ms.. There were no ST or T wave abnormalities to suggest myocardial ischemia or injury. R wave progression across the precordium was satisfactory. By my interpretation this EKG is non-diagnostic for acute ischemia. Disposition Clinical Impression: Chest pain Disposition: ADMITTED IP TO THIS HOSP Condition: Stable Time of Disposition: 02:14
[2022-09-13] MEDS ORDERED: NALOXONE 0.4 MG/ML 1 ML VIAL IV PRN (02:28)
[2022-09-13] MEDS ORDERED: MORPHINE SULFATE 2 MG/ML SYRINGE IV PRN (02:28)
--- NOTE | 2022-09-13 03:11 | XR ---
EXAM: XR Chest, 2 Views CLINICAL HISTORY: ITS.REASON XR Reason: Chest Pain TECHNIQUE: Frontal and lateral views of the chest. COMPARISON: 01/11/2021 FINDINGS: Lungs: Unremarkable. No consolidation. Pleural space: Unremarkable. No pneumothorax. No pleural effusions. Heart: Unremarkable. No cardiomegaly. Mediastinum: Unremarkable. Bones/joints: No acute osseous abnormalities. IMPRESSION: Normal chest.
[2022-09-13 07:42] VITALS: PULSE 55
[2022-09-13 08:34] VITALS: BP 113/74; TEMP 97.7
--- NOTE | 2022-09-13 09:51 | CONS ---
CONSULTATION CHIEF COMPLAINT: Chest pain. HISTORY OF PRESENT ILLNESS: Ken is a 56-year-old gentleman, who states that he has known coronary artery disease and underwent several angioplasties while he was in assisted, history of atrial fibrillation, and dyslipidemia, who presented to hospital complaining of chest discomfort. Chest pain is precordial, radiates to his neck without any diaphoresis, dizziness, or syncope. The patient states that he has had this chest pain for years and it has gotten worse last night. Due to this, he came to the ER from where he was admitted to hospital with a diagnosis of unstable angina. EKG shows sinus rhythm, changes of left ventricular hypertrophy, poor R-wave progression, and evidence of prior inferior wall myocardial infarction. At the time of my evaluation, he is comfortable at rest and is free of symptoms. Two sets of cardiac enzymes have been negative. Given his symptomatology, I advised the patient to undergo a stress test and if there is ischemia, consider invasive angiography. Understanding risks, benefits, he does not want to go through any further testing at this time, but is agreeable to having an echo done to assess his LV function. After that we should be able to discharge him home on aspirin and statin that he is currently on. He is not a candidate for nitrates as he takes Cialis and is not a candidate for beta blockers or ZOILA inhibitors given the hypotension and bradycardia. PAST MEDICAL HISTORY: Significant for coronary artery disease and cardiac arrhythmia, neither of which have been confirmed with prior documents. MEDICATIONS: At home included, 1. Crestor 10 daily. 2. Tobramycin. 3. Midodrine. 4. Celebrex. 5. Aspirin. 6. Cialis. ALLERGIES: There are no known drug allergies. FAMILY HISTORY: Negative for premature coronary artery disease. SOCIAL HISTORY: Significant for smoking. There is no history of EtOH abuse, or drug abuse. REVIEW OF SYSTEMS: 14 out of 14 review of systems has been performed. Pertinents are as documented. PHYSICAL EXAMINATION: GENERAL: He is comfortable at rest. VITAL SIGNS: Stable. NECK: There is no jugular venous distention. Carotid upstroke is normal. There is no bruit. CHEST: Reveals good air entry bilaterally. HEART: Reveals first and second heart sounds. No gallop. No murmur. No rub. ABDOMEN: Soft, nontender. EXTREMITIES: Did not reveal any edema. Peripheral pulses are felt. LABORATORY DATA: Troponins are negative. EKG is as described above. ASSESSMENT: 1. Precordial chest pain. 2. Abnormal EKG. 3. Dyslipidemia. PLAN: I will obtain a 2D echo and treat him with optimal medical therapy as per his wishes. HIWOT / CAROL: [id number] /
[2022-09-13] MEDS ORDERED: ATORVASTATIN 20 MG TAB PO SCH (21:00)
[2022-09-14] MEDS ORDERED: ASPIRIN 81 MG PO SCH (09:00)
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
== END 2022-09-13 09:38 | disposition left against medical advice (07) ==
LOC: EC 00:49 → 6NMEDSUR 02:28
PROVIDERS: ADMIT Internal Medicine; ATTEND Internal Medicine
DX: R07.89 Other chest pain (principal); I11.9 Hypertensive heart disease without heart failure; I48.91 Unspecified atrial fibrillation; I25.10 Atherosclerotic heart disease of native coronary artery without angina pectoris; R94.31 Abnormal electrocardiogram [ECG] [EKG]; R00.1 Bradycardia, unspecified; E78.5 Hyperlipidemia, unspecified; I34.0 Nonrheumatic mitral (valve) insufficiency; I25.2 Old myocardial infarction; M17.12 Unilateral primary osteoarthritis, left knee; Z53.29 Procedure and treatment not carried out because of patient's decision for other reasons; F17.210 Nicotine dependence, cigarettes, uncomplicated; Z79.82 Long term (current) use of aspirin; Z79.1 Long term (current) use of non-steroidal anti-inflammatories (NSAID); Z79.899 Other long term (current) drug therapy; Z87.828 Personal history of other (healed) physical injury and trauma; Z95.5 Presence of coronary angioplasty implant and graft; Z98.890 Other specified postprocedural states; Z82.5 Family history of asthma and other chronic lower respiratory diseases; Z83.49 Family history of other endocrine, nutritional and metabolic diseases; Z83.3 Family history of diabetes mellitus
CPT/HCPCS: 96366 ×2; 96376; 96361; 96365; 96375; 99285; 36415; 93005; 80053; 83690; 83735; 84484; 85025; 85610; 85730; 71046; G0378; J2270; J1644 ×2

== ENCOUNTER 2023-07-27 14:31 | Emergency (ER) | payer OTHER ==
[2023-07-27 15:32] VITALS: RESP 18
--- NOTE | 2023-07-27 15:44 | XR ---
EXAMINATION TYPE: XR wrist complete RT, XR hand complete RT DATE OF EXAM: 07/27/2023 3:37 PM CLINICAL INDICATION:Male, 57 years old with history of Injury; COMPARISON: None TECHNIQUE: XR wrist complete RT, XR hand complete RT; examined in the Frontal, navicular, lateral, a nd oblique. FINDINGS: No acute osseous pathology, joint dislocation, or joint effusion. No evidence of any soft tissue swelling is seen. IMPRESSION: No acute osseous pathology.
--- NOTE | 2023-07-27 15:51 | ED ---
General Adult HPI - General Chief complaint: Extremity Injury, Upper Stated complaint: R hand/wrist injury Time Seen by Provider: 07/27/23 15:15 Source: patient Mode of arrival: ambulatory Limitations: no limitations - History of Present Illness Initial comments: Dictation was produced using [employer] dictation software. please excuse any grammatical, word or spelling errors. Chief Complaint: 57-year-old male presents with right wrist pain History of Present Illness: Patient is a 57-year-old male he was punching a punching bag without gloves. States that he went for a right hook and all of a sudden had sharp pain to his whole right wrist. Patient states that he has pain to his right wrist and right fourth and fifth metacarpal bones. The ROS documented in this emergency department record has been reviewed and confirmed by me. Those systems with pertinent positive or negative responses have been documented in the HPI. All other systems are other negative and/or noncontributory. - Related Data Home Medications Medication Instructions Recorded Confirmed Aspirin EC [Ecotrin Low Dose] 81 mg PO DAILY 01/11/21 09/13/22 tadalafiL [Cialis] 5 mg PO DAILY PRN 12/30/21 09/13/22 Celecoxib [CeleBREX] 200 mg PO DAILY PRN 09/13/22 09/13/22 Erythromycin Ophth Oint [Romycin 1 applic RIGHT EYE QID 09/13/22 09/13/22 Ophth Oint] Lidocaine 5% Patch [Lidoderm 5% 1 patch TOPICAL DAILY PRN 09/13/22 09/13/22 Patch] Rosuvastatin [Crestor] 10 mg PO HS 09/13/22 09/13/22 Tobramycin/Dexamethasone [Tobradex 1 drop RIGHT EYE Q6H 09/13/22 09/13/22 Ophth Susp] Allergies Allergy/AdvReac Type Severity Reaction Status Date / Time No Known Allergies Allergy Verified 07/27/23 14:44 Review of Systems ROS Statement: Those systems with pertinent positive or pertinent negative responses have been documented in the HPI. ROS Other: All systems not noted in ROS Statement are negative. Past Medical History Past Medical History: Hypertension Additional Past Medical History / Comment(s): AFIB HX. Pneumothroax. History of Any Multi-Drug Resistant Organisms: None Reported Past Surgical History: Orthopedic Surgery Additional Past Surgical History / Comment(s): chest tube placement Past Psychological History: No Psychological Hx Reported Smoking Status: Current every day smoker Past Alcohol Use History: Daily Past Drug Use History: None Reported General Exam - General Exam Comments Initial Comments: General: Well-appearing, nontoxic, no acute distress. Head: Normocephalic, atraumatic Eyes: PERRLA, EOMI ENT: Airway patent Chest: Nonlabored breathing Skin: No visual rash, normal skin tone Neuro: Alert and oriented 3 Musculoskeletal: No gross abnormalities Right hand: No gross deformities, finger to thumb function intact of all digits, palpatory tenderness along the wrist and especially over the fourth and fifth metacarpals Limitations: no limitations Course Vital Signs 07/27/23 14:42 Temperature 98.3 F Pulse Rate 62 Respiratory 18 Rate Blood Pressure 135/85 O2 Sat by Pulse 99 Oximetry Medical Decision Making - Medical Decision Making Was pt. sent in by a medical professional or institution (, PA, RETAIL LOSS PREVENTION OFFICER, urgent c are, hospital, or long-term...) When possible be specific @ -No Did you speak to anyone other than the patient for history (EMS, parent, family, police, friend...)? What history was obtained from this source @ -No Did you review nursing and triage notes (agree or disagree)? Why? @ -I reviewed and agree with nursing and triage notes Were old charts reviewed (outside hosp., previous admission, EMS record, old EKG, old radiological studies, urgent care reports/EKG's, long-term records)? Report findings @ -No old charts were reviewed Differential Diagnosis (chest pain, altered mental status, abdominal pain women, abdominal pain men, vaginal bleeding, musculoskeletal, weakness, fever, dyspnea, syncope, headache, dizziness, GI bleed, back pain, seizure, CVA, palpatations, mental health)? @ -Boxer's fracture, scaphoid fracture, distal radius fracture EKG interpreted by me (3pts min.). @ -None done X-rays interpreted by me (1pt min.). @ -X-ray of the wrist and hand shows no acute processes. CT interpreted by me (1pt min.). @ -None done U/S interpreted by me (1pt. min.). @ -None done What testing was considered but not performed or refused? (CT, X-rays, U/S, labs)? Why? @ -None What meds were considered but not given or refused? Why? @ -None Did you discuss the management of the patient with other professionals (professionals i.e. , PA, RETAIL LOSS PREVENTION OFFICER, lab, RT, psych nurse, social service manager, campground caretaker, teacher, residential care officer, skilled nursing case manager)? Give summary @ -No Was smoking cessation discussed for >3mins.? @ -No Was critical care preformed (if so, how long)? @ -No Were there social determinants of health that impacted care today? How? (Homelessness, low income, unemployed, alcoholism, drug addiction, transportation, low edu. Level, literacy, decrease access to med. care, senior care, rehab)? @ -No Was there de-escalation of care discussed even if they declined (Discuss DNR or withdrawal of care, Hospice)? DNR status @ -No What co-morbidities impacted this encounter? (DM, HTN, Smoking, COPD, CAD, Cancer, CVA, ARF, Chemo, Hep., AIDS, mental health diagnosis, sleep apnea, morbid obesity)? @ -None Was patient admitted / discharged? Hospital course, mention meds given and route, prescriptions, significant lab abnormalities, going to OR and other pertinent info. @ -57-year-old male presents emergency department clinical presentation consistent with right hand and wrist sprain. Vital signs stable. No concern for scaphoid injury given that he does not have symptoms at the base of the thumb. X-rays are unremarkable. Patient requested Norm wrap. Norm wrap given. Patient given [place] discharge. Patient given referral to hand specialist Undiagnosed new problem with uncertain prognosis? @ -No Drug Therapy requiring intensive monitoring for toxicity (Heparin, Nitro, Insulin, Cardizem)? @ -No Were any procedures done? @ -No Diagnosis/symptom? Acute, or Chronic, or Acute on Chronic? Uncomplicated (without systemic symptoms) or Complicated (systemic symptoms)? @ -Hand sprain Side effects of treatment? @ -No Exacerbation, Progression, or Severe Exacerbation? @ -No Poses a threat to life or bodily function? How? (Chest pain, [place], [place], pneumonia, PE, COPD, DKA, ARF, appy, cholecystitis, CVA, Diverticulitis, Homicidal, Suicidal, threat to staff... and all critical care pts) @ -No Disposition Clinical Impression: Hand sprain Disposition: HOME SELF-CARE Condition: Good Instructions (If sedation given, give patient instructions): Wrist Injury (ED), Hand Sprain (ED) Is patient prescribed a controlled substance at d/c from ED?: No Referrals: Carlito Lao MD [Primary Care Provider] - 1-2 days Mike Cha DO [Doctor of Osteopathic Medicine] - 1-2 days Time of Disposition: 15:52
[2023-07-27] MEDS: HYDROcodone/APAP 5-325MG 1 EACH TAB PO STA (15:57)
[2023-07-27] MEDS ORDERED: ACET/COD 300 MG/30 MG STARTER PACK 6 TAB BTL PO STA (16:24)
[2023-07-27 17:14] VITALS: BP 130/82; PULSE 65; TEMP 98.1
== END 2023-07-27 16:43 | disposition home or self-care (01) ==
LOC: EC 14:31
DX: S63.91XA Sprain of unspecified part of right wrist and hand, initial encounter (principal); F17.200 Nicotine dependence, unspecified, uncomplicated; W21.89XA Striking against or struck by other sports equipment, initial encounter
CPT/HCPCS: 99283

== ENCOUNTER 2023-08-09 04:09 | Emergency (ER) | payer OTHER ==
[2023-08-09 04:20] VITALS: BP 136/102; PULSE 60; RESP 24; TEMP 97.6
[2023-08-09] MEDS ORDERED: MORPHINE SULFATE 4 MG/ML SYRINGE IVP STA (04:29)
[2023-08-09] MEDS ORDERED: ASPIRIN 325 MG TAB PO STA (04:29)
[2023-08-09] MEDS ORDERED: SODIUM CHLORIDE 0.9% 500 ML 500 ML IV ONE (04:29)
--- NOTE | 2023-08-09 04:39 | ED ---
Chest Pain HPI - General Chief Complaint: Chest Pain Stated Complaint: Chest Pain Time Seen by Provider: 08/09/23 04:21 Source: patient, EMS, RN notes reviewed, old records reviewed Mode of arrival: EMS - History of Present Illness Initial Comments: 57-year-old male presenting for evaluation of chest pain. Patient states chest pain began approximately 1 hour prior to arrival. He was given aspirin and nitroglycerin by paramedics during transport. Patient denies abdominal pain. Denies vomiting. States he does have prior cardiac history and follows with cardiology. Pain does not radiate. - Related Data Home Medications Medication Instructions Recorded Confirmed Aspirin EC [Ecotrin Low Dose] 81 mg PO DAILY 01/11/21 09/13/22 tadalafiL [Cialis] 5 mg PO DAILY PRN 12/30/21 09/13/22 Celecoxib [CeleBREX] 200 mg PO DAILY PRN 09/13/22 09/13/22 Erythromycin Ophth Oint [Romycin 1 applic RIGHT EYE QID 09/13/22 09/13/22 Ophth Oint] Lidocaine 5% Patch [Lidoderm 5% 1 patch TOPICAL DAILY PRN 09/13/22 09/13/22 Patch] Rosuvastatin [Crestor] 10 mg PO HS 09/13/22 09/13/22 Tobramycin/Dexamethasone [Tobradex 1 drop RIGHT EYE Q6H 09/13/22 09/13/22 Ophth Susp] Allergies Allergy/AdvReac Type Severity Reaction Status Date / Time No Known Allergies Allergy Verified 08/09/23 04:20 Review of Systems ROS Statement: Those systems with pertinent positive or pertinent negative responses have been documented in the HPI. ROS Other: All systems not noted in ROS Statement are negative. Past Medical History Past Medical History: Hypertension Additional Past Medical History / Comment(s): AFIB HX. Pneumothroax. History of Any Multi-Drug Resistant Organisms: None Reported Past Surgical History: Orthopedic Surgery Additional Past Surgical History / Comment(s): chest tube placement Past Psychological History: No Psychological Hx Reported Smoking Status: Current every day smoker Past Alcohol Use History: Daily Past Drug Use History: None Reported General Exam General appearance: alert Head exam: Present: atraumatic, normocephalic Eye exam: Present: normal appearance, PERRL Respiratory exam: Present: normal lung sounds bilaterally. Absent: respiratory distress Cardiovascular Exam: Present: regular rate, normal rhythm GI/Abdominal exam: Present: soft. Absent: distended, tenderness Extremities exam: Present: normal inspection, normal capillary refill. Absent: pedal edema Neurological exam: Present: alert, oriented X3, CN II-XII intact Psychiatric exam: Present: agitated, anxious Skin exam: Present: warm, dry, intact. Absent: cyanosis, diaphoretic Course Vital Signs 08/09/23 04:16 Temperature 97.6 F Pulse Rate 60 Respiratory 24 Rate Blood Pressure 136/102 O2 Sat by Pulse 100 Oximetry - Reevaluation(s) Reevaluation #1: 08/09/23 05:07 Patient eloped prior to complete assessment, prior to laboratory studies, prior to repeat EKG. Chest Pain MDM - MDM Was pt. sent in by a medical professional or institution (DIDIER Brandon, BUSINESS SYSTEMS ANALYST, urgent care, hospital, or fci...) When possible be specific @ -No Did you speak to anyone other than the patient for history (EMS, parent, family, police, friend...)? What history was obtained from this source @ -No Did you review nursing and triage notes (agree or disagree)? Why? @ -I reviewed and agree with nursing and triage notes Were old charts reviewed (outside hosp., previous admission, EMS record, old EKG, old radiological studies, urgent care reports/EKG's, fci records)? Report findings @ -No old charts were reviewed Differential Chest Pain: Stable Angina, Unstable Angina, STEMI, NSTEMI Aortic Dissection, Pneumothorax, Musculoskeletal, Esophageal Spasm GERD, Cholecystitis, Pancreatitis, Zoster, this is not meant to be an all-inclusive list. EKG interpreted by me (3pts min.). @ -Initial EKG at 0 411 shows sinus bradycardia with a rate of 59, IA interval 158, QRS duration 81, QTc 412, questioning ST segment elevation in V2 without reciprocal change. Repeat EKG at 0421, sinus rhythm, ventricular rate of 63, IA interval 150, QRS duration 90, QTc 424, similar QRS morphology and V2 with ST segment elevation. X-rays interpreted by me (1pt min.). @ -None done CT interpreted by me (1pt min.). @ -None done U/S interpreted by me (1pt. min.). @ -None done What testing was considered but not performed or refused? (CT, X-rays, U/S, labs)? Why? @ -None What meds were considered but not given or refused? Why? @ -None Did you discuss the management of the patient with other professionals (professionals i.e. , PA, BUSINESS SYSTEMS ANALYST, lab, RT, psych nurse, social welfare clerk, director of patient care, teacher, loan review officer, director of casework)? Give summary @ -No Was smoking cessation discussed for >3mins.? @ -No Was critical care preformed (if so, how long)? @ -No Were there social determinants of health that impacted care today? How? (Homelessness, low income, unemployed, alcoholism, drug addiction, transportation, low edu. Level, literacy, decrease access to med. care, shelter, rehab)? @ -No Was there de-escalation of care discussed even if they declined (Discuss DNR or withdrawal of care, Hospice)? DNR status @ -No What co-morbidities impacted this encounter? (DM, HTN, Smoking, COPD, CAD, Cancer, CVA, ARF, Chemo, Hep., AIDS, mental health diagnosis, sleep apnea, morbid obesity)? @ -None Was patient admitted / discharged? Hospital course, mention meds given and route, prescriptions, significant lab abnormalities, going to OR and other pertinent info. @ -This patient was seen immediately upon arrival after being placed in room 16. EKG was obtained IV was established laboratory tests were drawn. The patient became agitated with staff and immediately started and began yelling and ultimately eloped prior to complete evaluation. Undiagnosed new problem with uncertain prognosis? @ -No Drug Therapy requiring intensive monitoring for toxicity (Heparin, Nitro, Insulin, Cardizem)? @ -No Were any procedures done? @ -No Diagnosis/symptom? @ -Chest pain, elopement Acute, or Chronic, or Acute on Chronic? @ -Default Uncomplicated (without systemic symptoms) or Complicated (systemic symptoms)? @ -Default Side effects of treatment? @ -No Exacerbation, Progression, or Severe Exacerbation? @ -No Poses a threat to life or bodily function? How? (Chest pain, [place], [place], pneumonia, PE, COPD, DKA, ARF, appy, cholecystitis, CVA, Diverticulitis, Homicidal, Suicidal, threat to staff... and all critical care pts) @ -No Disposition Clinical Impression: Chest pain Disposition: LEFT AGAINST MEDICAL ADVICE Condition: Undetermined Is patient prescribed a controlled substance at d/c from ED?: No Referrals: Carlito Lao MD [Primary Care Provider] - 1-2 days Time of Disposition: 04:50
[2023-08-09 05:01] LABS: Basophils % (A) 0 %; Eosinophils # (A) 0.2 k/uL (0-0.7); Eosinophils % (A) 3 %; HCT 42.9 % (39.0-53.0); Lymphocytes # (A) 1.8 k/uL (1.0-4.8); Lymphocytes % (A) 25 %; MCHC 32.5 g/dL (31.0-37.0); MCV 98.4 fL (80.0-100.0); Mean Platelet Volume 8.1; Monocytes # (A) 0.5 k/uL (0-1.0); Monocytes % (A) 7 %; Neutrophils # (A) 4.7 k/uL (1.3-7.7); Neutrophils % (A) 64 %; Platelet Count 210 k/uL (150-450); RBC 4.37 m/uL (4.30-5.90); RDW 12.7 % (11.5-15.5); WBC 7.4 k/uL (3.8-10.6)
[2023-08-09 05:07] LABS: ALT 22 U/L (4-49); AST 30 U/L (17-59); African American GFR (CKD) >90 (>60 ml/min/1.73 sqM); Alcohol <10 mg/dL; Alkaline Phosphatase 85 U/L (38-126); Anion Gap 7 mmol/L; Blood Urea Nitrogen 16 mg/dL (9-20); Calcium 9.4 mg/dL (8.4-10.2); Carbon Dioxide 22 mmol/L (22-30); Chloride 110 mmol/L (98-107); Glucose 82 mg/dL (74-99); Lipase 85 U/L (23-300); Magnesium 1.8 mg/dL (1.6-2.3); Non-African American GFR(CKD) 80 (>60 ml/min/1.73 sqM); Sodium 139 mmol/L (137-145); Total Bilirubin 0.7 mg/dL (0.2-1.3); Total Protein 6.5 g/dL (6.3-8.2)
[2023-08-09 05:08] LABS: Partial Thromboplastin Time 25.2 sec (22.0-30.0); Prothrombin Time 10.6 sec (10.0-12.5)
== END 2023-08-09 04:58 | disposition left against medical advice (07) ==
LOC: EC 04:09
DX: R07.9 Chest pain, unspecified (principal); F17.200 Nicotine dependence, unspecified, uncomplicated; R00.1 Bradycardia, unspecified; Z53.29 Procedure and treatment not carried out because of patient's decision for other reasons
CPT/HCPCS: 99285 ×2; 36415; 93005; 80053; 83690; 83735; 84484; 85025; 85610; 85730; G0480; 80320

== ENCOUNTER → 2023-12-22 | Outpatient (CLI) | payer OTHER ==
--- NOTE | 2023-12-22 10:19 | XR ---
EXAMINATION TYPE: XR knee complete LT DATE OF EXAM: 12/22/2023 COMPARISON: NONE HISTORY: Chronic pain TECHNIQUE: Three views are submitted. FINDINGS: Moderate to severe osteoarthritic changes. Postsurgical changes suggesting previous ACL repair surger y. Moderate-sized suprapatellar bursal fluid collection. Osseous structures are intact. No acute fr acture seen. Mild generalized demineralization. Soft tissue ossification along the medial soft tissu es. IMPRESSION: 1. Moderate to severe osteoarthritis. 2. Moderate suprapatellar bursal fluid collection. [facility], , 12/22/2023 10:17 AM
== END | disposition home or self-care (01) ==
LOC: RADXRMAIN 09:55
PROVIDERS: ATTEND Internal Medicine
DX: M17.12 Unilateral primary osteoarthritis, left knee (principal)

== ENCOUNTER → 2024-01-17 | Outpatient (CLI) | payer OTHER ==
--- NOTE | 2024-01-17 17:59 | MR ---
EXAMINATION TYPE: MR brain wo/w con DATE OF EXAM: 01/17/2024 5:51 PM COMPARISON: None. CLINICAL INDICATION: Male, 58 years old with history of R51.9 HEADACHE, Unexplained sudden weight los s over the last 2 months TECHNIQUE: Multi planar, multi sequence imaging was performed through the brain including: T1, T2, In version recovery, susceptibility weighted imaging and gradient echo imaging and Diffusion weighted im aging. The patient was then given intravenous contrast and multi planar, T1 fat-saturation images wer e obtained. IV Contrast: 6 mL Gadobutrol FINDINGS: The mendoza-white junctions, ventricular system, basal cisterns appear unremarkable. Diffusion-weighted imaging shows no evidence of restricted diffusion to suggest acute/subacute infarct. Intracranial ar terial flow voids are maintained. Midline structures show no abnormality. Scattered foci of high T2 s ignal intensity are seen within the periventricular white matter. The susceptibility weighted images do not reveal any evidence for micro-hemorrhage. After administration of gadolinium, no abnormal enha ncement is seen. The bone marrow signal is within normal limits. Paranasal sinuses and mastoid air cells: Moderate scattered paranasal sinus disease. Visualized orbits: Orbital contents are intact. IMPRESSION: 1. No evidence of intracranial mass, acute/subacute infarct, or abnormal enhancement. 2. Nonspecific white matter changes, likely related to small vessel ischemic disease. 3. Moderate paranasal sinus disease. [facility], , 01/17/2024 5:57 PM
== END | disposition home or self-care (01) ==
LOC: RADMRIMAIN 17:08
PROVIDERS: ATTEND Internal Medicine
DX: R16.0 Hepatomegaly, not elsewhere classified (principal); R51.9 Headache, unspecified; R63.4 Abnormal weight loss
CPT/HCPCS: 70553; A9585

== ENCOUNTER → 2024-01-23 | Outpatient (CLI) | payer OTHER ==
--- NOTE | 2024-01-23 18:03 | MR ---
EXAMINATION TYPE: MR liver wo/w con DATE OF EXAM: 01/23/2024 5:18 PM INDICATION: Patient age:Male; 58 years old; Reason for study: R16.0 HEPATOMEGALY, NOT ELSEWHERE CLASSIFIED; [facility]. COMPARISON: CT pelvis 12/30/2021 TECHNIQUE: Multiplanar multi-sequence imaging was performed without and with IV contrast. The patien t was given 6 ccs of Gadavist intravenously and dynamic imaging was performed. Post IV contrast subtr action images were also submitted for review. FINDINGS: Limited examination due to paucity of intraabdominal fat. LOWER CHEST: No gross irregularity. ABDOMEN Liver: Mildly enlarged liver measures 16.9 cm in CC dimension. Thin-walled T2 hyperintense right hepa tic lobe 2.5 cm cyst with thin septations. No enhancing component identified. Noncirrhotic appearance of liver. No fatty infiltration. Additional punctate few T2 hyperintense nonenhancing cysts identifi ed of the liver. Gallbladder and Bile ducts: Unremarkable. Pancreas: Unremarkable. Spleen: Unremarkable. Adrenal glands: Unremarkable. Kidneys: No hydronephrosis. No enhancing renal lesions. Subcentimeter T2 hyperintense cysts within th e inferior pole of the right kidney. Stomach and Bowel: Unremarkable as visualized. Peritoneum: No evidence of pneumoperitoneum, free fluid, or adenopathy. Vasculature: Unremarkable. No aortic aneurysm. Abdominal wall: Unremarkable. Musculoskeletal: The osseous structures appear intact. IMPRESSION: Mild hepatomegaly with a right hepatic lobe benign appearing 2.5 cm minimally complex cyst. No abnorm al contrast enhancement. Additional few punctate nonenhancing cysts within the liver. No suspicious e nhancing masses in the abdomen. [facility], , 01/23/2024 6:00 PM
== END | disposition home or self-care (01) ==
LOC: RADMRIMAIN 16:09
PROVIDERS: ATTEND Internal Medicine
DX: R16.0 Hepatomegaly, not elsewhere classified (principal); R63.4 Abnormal weight loss; R51.9 Headache, unspecified
CPT/HCPCS: 74183; A9585

== ENCOUNTER → 2024-02-09 | Outpatient (CLI) | payer OTHER ==
--- NOTE | 2024-02-12 11:38 | NM ---
EXAMINATION TYPE: NM bone scan whole body DATE OF EXAM: 02/09/2024 2:24 PM CLINICAL INDICATION:Male, 58 years old with history of R63.4 WEIGHT LOSS; COMPARISON: 01/23/2024 12/30/2021 TECHNIQUE: Intravenous administration 17.1 mCi Tc 99m MDP followed by multiple scintigraphic images o f the appendicular and axial skeleton. Additionally, small field of view planar anterior and posterio r images of the lumbosacral spine and pelvis. Lastly, coronal, transverse, and sagittal SPECT images of the lumbosacral spine and pelvis were generated for review.Lastly, small rtexc-ti-hium anterior, p osterior and lateral views of the chest were submitted for review. Images acquired 3 hours post injection. FINDINGS: No abnormal uptake is identified within the appendicular or axial skeleton to suggest metastatic dise ase. There is increased uptake within the bilateral shoulder, sternoclavicular, and sacroiliac joints and left knee consistent with degenerative changes. No other photopenic areas or areas of increased acti vity are identified. Physiologic radiotracer activity is demonstrated in the kidneys and bladder. IMPRESSION: Nothing to suggest metastatic disease. Mild degeneration changes left knee, shoulders and hips. [facility], , 02/12/2024 11:35 AM
== END | disposition home or self-care (01) ==
LOC: RADNMMAIN 09:38
PROVIDERS: ATTEND Internal Medicine
DX: M17.12 Unilateral primary osteoarthritis, left knee (principal); R63.4 Abnormal weight loss
CPT/HCPCS: 78306; A9503